=== PATIENT | female | born 1970 | race Two or more races ===

== ENCOUNTER 2020-12-28 11:15 | Outpatient (CLI) | payer MEDICARE, OTHER ==
[2020-12-28] MEDS ORDERED: TDAP [DIPH/PERTUSSIS/TET] 0.5 ML VIAL IM ONE ×2 (11:54→12:00)
== END 2020-12-28 23:59 | disposition home or self-care (01) ==
LOC: WOU 11:15
PROVIDERS: ATTEND Surgery
DX: S61.211D Laceration without foreign body of left index finger without damage to nail, subsequent encounter (principal); W18.39XD Other fall on same level, subsequent encounter; G80.9 Cerebral palsy, unspecified; H54.8 Legal blindness, as defined in USA
CPT/HCPCS: 73140; 90471; 90715; G0463

== ENCOUNTER 2021-01-04 10:54 | Outpatient (CLI) | payer MEDICARE, OTHER | END 2021-01-04 23:59 | disposition home or self-care (01) | LOC: WOU 10:54 | PROVIDERS: ATTEND Surgery | DX: S61.211D Laceration without foreign body of left index finger without damage to nail, subsequent encounter (principal); W18.39XD Other fall on same level, subsequent encounter; G80.9 Cerebral palsy, unspecified; H54.8 Legal blindness, as defined in USA | CPT/HCPCS: G0463 ==